=== PATIENT | male | born 1945 | race Caucasian/White ===

== ENCOUNTER 2021-02-01 13:41 | Outpatient (CLI) | payer MEDICARE, BC ==
[2021-02-01 15:04] LABS: Hemoglobin 12.3 g/dL (13.5-17.5); Mean Corpuscular HGB CONC 32.9 g/dL (32.0-36.0); Mean Corpuscular Volume 100.3 fl (81.2-95.1); Mean Platelet Volume 9.3 fl (7.4-10.4); Platelet Count 138 10x3/uL (150-450); RBC Distribution Width 13.6 % (11.5-14.5); Red Blood Cell (RBC) Count 3.73 10x6/uL (4.32-5.72); White Blood Cell (WBC) Count 6.7 10x3/uL (3.5-10.5)
[2021-02-01 15:22] LABS: Anion Gap 14 mmol/L (10-20); BUN (Urea Nitrogen) 40 mg/dL (8.4-25.7); Calc. Creatinine Clearance 0 mL/min (70-130); Calcium 9.4 mg/dL (7.8-10.44); Carbon Dioxide 26 mmol/L (23-31); Chloride 107 mmol/L (98-107); Glucose 98 mg/dL (83-110); Sodium 142 mmol/L (136-145)
[2021-02-02 12:08] LABS: SARS-CoV-2 PCR by NAA Not Detected (NotDetected)
== END 2021-02-01 13:42 | disposition home or self-care (01) ==
LOC: CSHLAB 13:41
PROVIDERS: ATTEND Orthopaedic Surgery
DX: Z01.812 Encounter for preprocedural laboratory examination (principal); Z20.822 Contact with and (suspected) exposure to COVID-19; M19.011 Primary osteoarthritis, right shoulder
CPT/HCPCS: 80048; 85027; U0003; U0005

== ENCOUNTER 2021-02-06 07:23 | Observation (INO) | payer MEDICARE, BC ==
[2021-02-06] MEDS ORDERED: Lidocaine 1% MPF 2 ML VIAL ONE (08:52)
[2021-02-06] MEDS ORDERED: Bupivacaine 0.25% HCL 30 ML VIAL ONE (08:59)
[2021-02-06] MEDS ORDERED: EPINEPHrine 1 MG/ML AMP ONE ×2 (08:59→09:54)
[2021-02-06] MEDS ORDERED: Neomycin-Polymyxin 1 ML AMP ONE (09:00)
[2021-02-06] MEDS ORDERED: Bupivacaine PF 0.5% 30 ML VIAL ONE ×2 (09:00→09:55)
[2021-02-06] MEDS ORDERED: Ketorolac Tromethamine 30 MG/ML VIAL ONE (09:00)
[2021-02-06] MEDS ORDERED: Midazolam HCl 2 mg/2 ml Vial ONE (09:53)
[2021-02-06] MEDS ORDERED: Fentanyl 100 MCG/2 ML VIAL ONE (09:55)
[2021-02-06] MEDS ORDERED: Lidocaine 1% PF 5 ML VIAL ONE ×2 (09:56)
[2021-02-06] MEDS ORDERED: Glycopyrrolate 0.2 MG/ML 5 ML SYRINGE ONE (10:34)
[2021-02-06] MEDS ORDERED: Rocuronium Bromide 10 MG/ML (10ML VIAL) ONE (10:34)
[2021-02-06] MEDS ORDERED: PROPOFOL 20 ML ONE (10:34)
[2021-02-06] MEDS ORDERED: Ondansetron PF 4 MG/2 ML Vial ONE (10:35)
[2021-02-06] MEDS ORDERED: Lidocaine 2% PF 5 ML VIAL ONE (10:35)
[2021-02-06] MEDS ORDERED: Dexamethasone 4 mg/ml Vial ONE (10:35)
[2021-02-06] MEDS ORDERED: ePHEDrine Sulfate 50 MG/10 ML VIAL ONE (11:10)
[2021-02-06] MEDS ORDERED: Tranexamic Acid 1,000 MG/10 ML VIAL ONE (11:16)
[2021-02-06] MEDS ORDERED: PHENYLEPHRINE-NS 100 MCG/ML 10 ML SYRINGE ONE ×2 (11:40→11:47)
[2021-02-06] MEDS ORDERED: Ondansetron PF 4 MG/2 ML Vial IVP PRN (13:30)
[2021-02-06] MEDS ORDERED: HYDROcodone/Acetaminophen 5/325 mg Tablet PO PRN ×2 (13:30)
[2021-02-06] MEDS ORDERED: Ropivacaine 0.2% 550 ML 550 ML NERVE BLCK SCH (13:45)
[2021-02-06] MEDS ORDERED: Morphine 4 MG/ML VIAL IV PRN ×2 (15:13→15:14)
[2021-02-06] MEDS ORDERED: Zolpidem Tartrate 5 MG TAB PO PRN ×2 (15:17→21:00)
[2021-02-06] MEDS ORDERED: Nitroglycerin 0.4 MG TAB (25 Tab Bottle) SL PRN (15:19)
[2021-02-06 15:43] VITALS: BMI 20.4
[2021-02-06] MEDS ORDERED: FLU VACC QS2021-22(65YR UP)/PF 240 MCG/0.7 ML SYRINGE IM ONE (16:00)
[2021-02-06] MEDS ORDERED: Acetaminophen 325 MG TAB PO PRN (16:36)
[2021-02-06] MEDS ORDERED: Carvedilol 25 MG TAB PO SCH ×2 (21:00)
[2021-02-06] MEDS ORDERED: Atorvastatin Calcium 40 MG TAB PO SCH (21:00)
[2021-02-06] MEDS: ALPRAZolam 0.5 MG TAB PO SCH (21:07)
[2021-02-06] MEDS: Apixaban 5 MG TAB PO SCH (21:07)
[2021-02-06] MEDS: FLUoxetine HCl 20 MG CAP PO SCH (21:08)
[2021-02-07 06:04] LABS: Anion Gap 13 mmol/L (10-20); BUN (Urea Nitrogen) 18 mg/dL (8.4-25.7); Calc. Creatinine Clearance 73 mL/min (70-130); Calcium 8.8 mg/dL (7.8-10.44); Carbon Dioxide 24 mmol/L (23-31); Chloride 106 mmol/L (98-107); Glucose 198 mg/dL (83-110); Sodium 138 mmol/L (136-145)
[2021-02-07] MEDS ORDERED: Furosemide 20 MG TAB PO SCH ×2 (09:00)
[2021-02-07] MEDS ORDERED: Ezetimibe 10 MG TAB PO SCH (09:00)
[2021-02-07] MEDS ORDERED: Meloxicam 7.5 MG TAB PO SCH (09:00)
[2021-02-07] MEDS ORDERED: Aspirin 325 MG TAB PO SCH (09:00)
[2021-02-07] MEDS: FLUoxetine HCl 20 MG CAP PO SCH (10:19)
[2021-02-07] MEDS: ALPRAZolam 0.5 MG TAB PO SCH (10:21)
[2021-02-07] MEDS: Apixaban 5 MG TAB PO SCH (10:22)
[2021-02-07 11:05] VITALS: TEMP 99.6
[2021-02-07 15:28] VITALS: BP 122/66
== END 2021-02-07 14:23 | disposition home or self-care (01) ==
LOC: CSHSDC 07:23 → INTOOBSV 14:50 → CSHTELE 14:50
PROVIDERS: ADMIT Orthopaedic Surgery; ATTEND Nurse Practitioner Family
PROC: 0RRJ00Z Replacement of Right Shoulder Joint with Reverse Ball and Socket Synthetic Substitute, Open Approach (ICD-10-PCS; principal; 2021-02-06)
DX: M19.011 Primary osteoarthritis, right shoulder (principal); I42.9 Cardiomyopathy, unspecified; I48.91 Unspecified atrial fibrillation; Z79.01 Long term (current) use of anticoagulants; I25.10 Atherosclerotic heart disease of native coronary artery without angina pectoris; E78.5 Hyperlipidemia, unspecified; I12.9 Hypertensive chronic kidney disease with stage 1 through stage 4 chronic kidney disease, or unspecified chronic kidney disease; N18.30 Chronic kidney disease, stage 3 unspecified; F41.9 Anxiety disorder, unspecified; Z79.899 Other long term (current) drug therapy; Z79.82 Long term (current) use of aspirin
CPT/HCPCS: 23472; 73030; 80048; A4306; C1713; G0378; J0171; J1100; J1885; J2001; J2250; J2405; J2704; J2795; J3010; J3490; S0020

== ENCOUNTER 2021-11-24 13:17 | Emergency (ER) | payer MEDICARE, BC ==
[2021-11-24] MEDS ORDERED: HYDROcodone/Acetaminophen 5/325 mg Tablet ONE (14:00)
[2021-11-24 14:17] LABS: #Eosinphils 0.1 10x3/uL (0.0-0.5); #Monocytes 0.7 10x3/uL (0.0-1.1); #Neutrophils 3.4 10x3/uL (1.5-8.4); %Basophils 0.4 % (0.0-2.0); %Eosinophils 1.9 % (0.0-6.0); %Lymphocytes 26.6 % (18.0-47.0); %Monocytes 11.7 % (0.0-10.0); Mean Corpuscular HGB CONC 32.4 g/dL (32.0-36.0); Mean Corpuscular Hemoglobin 31.3 pg (27.0-33.0); Mean Corpuscular Volume 96.9 fl (81.2-95.1); Mean Platelet Volume 8.9 fl (7.4-10.4); Platelet Count 172 10x3/uL (150-450); RBC Distribution Width 14.4 % (11.5-14.5); Red Blood Cell (RBC) Count 3.51 10x6/uL (4.32-5.72); White Blood Cell (WBC) Count 5.7 10x3/uL (3.5-10.5)
[2021-11-24 14:35] LABS: Anion Gap 14 mmol/L (10-20); BUN (Urea Nitrogen) 17 mg/dL (8.4-25.7); Calc. Creatinine Clearance 0 mL/min (70-130); Carbon Dioxide 26 mmol/L (23-31); Chloride 102 mmol/L (98-107); Potassium 4.6 mmol/L (3.5-5.1); Sodium 137 mmol/L (136-145)
[2021-11-24 14:36] LABS: ALT (SGPT) 17 U/L (8-55); AST (SGOT) 24 U/L (5-34); Albumin 3.6 g/dL (3.4-4.8); Alkaline Phosphatase 98 U/L (40-110); Bilirubin, Total 0.6 mg/dL (0.2-1.2); CK (CPK) 167 U/L (30-200); Estimated GFR 91; Globulin 3.8 g/dL (2.4-3.5); Glucose 104 mg/dL (83-110); Protein, Total 7.4 g/dL (5.8-8.1)
[2021-11-24 16:27] LABS: Bilirubin Neg (Negative); Blood, Urine Negative (Negative); Clarity Clear (Clear); Glucose, Urine (Dipstick) Normal (Negative); Ketone, Urine Negative (Negative); Leukocyte 25 (Negative); Nitrite Negative (Negative); Protein, Urine (Dipstick) Negative (Neg-Trace); Urobilinogen Normal mg/dL (Less than 2)
[2021-11-24 16:51] LABS: Bacteria/HPF None Seen HPF (None Seen); RBC/HPF None Seen HPF (0-3); Squamous Epithelial None Seen HPF (0-3); WBC/HPF 0-3 HPF (0-3)
== END 2021-11-24 18:09 ==
LOC: CSHERS 13:17
DX: S92.512A Displaced fracture of proximal phalanx of left lesser toe(s), initial encounter for closed fracture (principal); R62.7 Adult failure to thrive; R53.1 Weakness; I25.10 Atherosclerotic heart disease of native coronary artery without angina pectoris; I11.0 Hypertensive heart disease with heart failure; I50.9 Heart failure, unspecified; I48.91 Unspecified atrial fibrillation; F17.210 Nicotine dependence, cigarettes, uncomplicated; Z79.01 Long term (current) use of anticoagulants; Z79.899 Other long term (current) drug therapy; W20.8XXA Other cause of strike by thrown, projected or falling object, initial encounter
CPT/HCPCS: 36415; 71045; 80053; 81003; 81015; 82550; 83605; 85025; 93005